=== PATIENT | female | born 1960 | race Caucasian/White ===

== ENCOUNTER 2019-09-01 10:08 | Outpatient (CLI) | payer BC, SELFPAY ==
--- NOTE | 2019-09-01 10:17 | MM_ITS ---
WS: [id number] BILATERAL SCREENING DIGITAL MAMMOGRAM WITH CAD HISTORY: SCREENING COMPARISON: 05/20/2017, 12/13/2015, 06/20/2012 and 07/29/2012 Bilateral CC and MLO views submitted. Computer aided detection analyzed. Breast composition: There are scattered areas of fibroglandular density. No suspicious masses, microc alcifications or architectural distortion. There is a long-term stable nodule in the central LEFT nicole ast. 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 Irina n calcification in the central RIGHT breast. MM/[place] [id number] IMPRESSION: BI-RADS: 2-Benign FOLLOW UP: 1 Year Follow-up
== END 2019-09-01 10:09 | disposition home or self-care (01) ==
LOC: RADSHAW 10:14
PROVIDERS: Family Provider Electrodiagnostic Medicine; PCP Electrodiagnostic Medicine; Visit Provider Electrodiagnostic Medicine
DX: Z12.31 Encounter for screening mammogram for malignant neoplasm of breast (principal)
CPT/HCPCS: 77067

== ENCOUNTER 2020-03-09 14:16 | Outpatient (CLI) | payer BC, SELFPAY ==
--- NOTE | 2020-03-09 14:26 | XR_ITS ---
WS: [id number] EXAM: SACRUM AND COCCYX: 3 VIEWS DATE OF EXAMINATION: 03/09/2020, 1447 hours COMPARISON: Lumbar spine examination from 06/18/2017 HISTORY: Patient is 59 years old with back pain status post fall FINDINGS: Since the prior examination there has been interval transpedicular screw fixation performed at the L5 -S1 level bilaterally as well as an anterior plate and screws and interbody fusion device placed. The re is a slight halo effect around the right L5 transpedicular screw suggesting possible loss of purch ase. No hardware failure otherwise seen. Fairly extensive facet arthropathy changes lower lumbar spin e. Overall bone density is decreased. Minimal arthritis within both SI joints. I'm not convinced of a definite displaced sacral fracture. Presacral space is normal. If there is high clinical suspicion f or fracture that needs further evaluation follow-up CT or MRI would be the imaging modalities of rodriguez samia for evaluation. Calcification of the deep pelvis felt to represent phleboliths. XR/XR sacrum coccyx min 2V [id number] IMPRESSION: No fracture seen. Interval postoperative changes with fusion L5-S1 level. Quest ion loss of purchase of the right L5 transpedicular screw.
== END 2020-03-09 14:17 | disposition home or self-care (01) ==
LOC: RAD 14:20
PROVIDERS: PCP Electrodiagnostic Medicine; Visit Provider Electrodiagnostic Medicine
DX: M54.5 Low back pain (principal); W19.XXXA Unspecified fall, initial encounter; M43.27 Fusion of spine, lumbosacral region
CPT/HCPCS: 72220

== ENCOUNTER 2021-04-26 07:58 | Outpatient (CLI) | payer BC, SELFPAY ==
--- NOTE | 2021-04-26 08:10 | MM_ITS ---
WS: [id number] Bilateral screening digital mammogram, 04/26/2021 Clinical Data: SCREENING Comparison: 09/01/2019, 05/20/2017, 12/13/2015, 01/05/2014, 07/29/2012, 06/20/2012, 07/11/2010, 06/30/2009 , 05/18/2008, 04/03/2007, 05/14/2006. Findings: The breast parenchymal pattern shows fibroglandular tissue No spiculated masses or clustered calcific ations are seen. There are no secondary signs of carcinoma. There is a mole marker on the right breas t. MM/[place] [id number] Impression: 1. Negative bilateral mammogram unchanged. 2. Recommend annual screening mammograms. BIRADS: 1-Negative FOLLOW UP: 1 Year Follow-up The CAD calibration checker was used.
== END 2021-04-26 07:59 | disposition home or self-care (01) ==
LOC: RADSHAW 08:01
PROVIDERS: PCP Electrodiagnostic Medicine; Visit Provider Electrodiagnostic Medicine
DX: Z12.31 Encounter for screening mammogram for malignant neoplasm of breast (principal)
CPT/HCPCS: 77067

== ENCOUNTER 2021-04-26 13:30 | Outpatient (CLI) | payer BC, SELFPAY ==
--- NOTE | 2021-04-26 13:36 | USCV_ITS ---
KimmyManie Age: 60 Gender: F : 1960 Exam Date: 04/26/2021 14:10 Ordering Phys: Johnnie Vazquez DO Technologist: Exam Location: [facility] [place] Indication: swelling LLE PROCEDURES: Venous duplex imaging was performed in only the left lower extremity. The following venous structures were evaluated: common femoral vein, profunda vein, proximal portion of the greater saphenous vein, superficial femoral vein, and the popliteal vein. In addition, the posterior tibial and peroneal trunk were evaluated. FINDINGS: Normal 2-D Doppler and augmentation and compressibility throughout the lower extremity venous structures. Additional imaging through the proximal calf veins also reveals no thrombus. Limited evaluation of the greater saphenous vein is patent with no thrombus. CONCLUSIONS No DVT left lower extremity. Dr. Haleigh Lei DO (Electronically Signed) Final Date: 26 April 2021 16:11 S
== END 2021-04-26 13:31 | disposition home or self-care (01) ==
LOC: RAD 13:33
PROVIDERS: PCP Electrodiagnostic Medicine; Visit Provider Electrodiagnostic Medicine
DX: M79.662 Pain in left lower leg (principal); M25.572 Pain in left ankle and joints of left foot; M79.89 Other specified soft tissue disorders
CPT/HCPCS: 93971

== ENCOUNTER 2022-09-17 07:53 | Outpatient (CLI) | payer BC, SELFPAY ==
--- NOTE | 2022-09-17 08:05 | MM_ITS ---
WS: [id number] Bilateral screening 3D tomosynthesis digital mammogram, 09/17/2022 Clinical Data: SCREEN Comparison: 04/26/2021, 09/01/2019, 05/20/2017, 12/13/2015, 01/05/2014, 07/29/2012, 06/20/2012, 07/11/2010, 06/30/2009, 05/18/2008, 04/03/2007. Findings: The breast parenchymal pattern shows fibroglandular tissue. No spiculated masses are seen. There is a 0.7 cm smooth bordered density in the central portion of the left breast with numerous calcification s. Probably this lesion represents a degenerating fibroadenoma but a breast ultrasound is recommended . The right breast is normal There are no secondary signs of carcinoma. MM/[place] [id number] Impression: 1. 0.7 cm central left breast lesion at the 12:00 position 2. Recommend left breast ultrasound. BIRADS: 0-Incomplete: Need additional imaging evaluation FOLLOW UP: See Report The CAD waterway traffic checker was used.
== END 2022-09-17 07:54 | disposition home or self-care (01) ==
LOC: RAD 07:54
PROVIDERS: PCP Electrodiagnostic Medicine; Visit Provider Electrodiagnostic Medicine
DX: Z12.31 Encounter for screening mammogram for malignant neoplasm of breast (principal)
CPT/HCPCS: 77063; 77067

== ENCOUNTER 2022-10-17 11:44 | Outpatient (CLI) | payer BC, SELFPAY ==
--- NOTE | 2022-10-17 12:05 | US_ITS ---
WS: [id number] ULTRASOUND LEFT BREAST HISTORY: ABNORMAL MAMMO COMPARISON: Prior ultrasound 07/29/2012, mammogram 09/17/2022, 04/26/2021, 09/01/2019 TECHNIQUE: 2-D and Doppler. Hypoechoic mass with a few central calcifications is identified at 12:00, 1 cm from the nipple. This corresponds to the mammographic abnormality. This mass measures 8 x 4 x 9 mm. This mass appears sligh tly different in configuration with increased calcification but has been present since at least 2019. Most consistent with a fibroadenoma. US/US breast LT limited* [id number] IMPRESSION: BI-RADS: 2-Benign FOLLOW-UP: 1 Year Follow-up
== END 2022-10-17 11:45 | disposition home or self-care (01) ==
PROVIDERS: PCP Electrodiagnostic Medicine; Visit Provider Electrodiagnostic Medicine
DX: R92.8 Other abnormal and inconclusive findings on diagnostic imaging of breast (principal)
CPT/HCPCS: 76642

== ENCOUNTER 2023-12-19 08:43 | Outpatient (CLI) | payer BC, SELFPAY ==
--- NOTE | 2023-12-19 08:47 | MM_ITS ---
WS: [id number] VIEWS: MLO and CC views both breasts. 3D digital tomosynthesis is also included in this exam. Comparison made with prior exam of 05/18/2008, 06/30/2009, 07/11/2010, 07/29/2012, 01/05/2014, 12/13/2015 , 05/20/2017, 09/01/2019, 04/26/2021, 09/17/2022.. Findings: There was no sign of mass, architectural distortion or suspicious calcification in either breast. The re are scattered areas of fibroglandular density MM/[place] [id number] Impression: BI-RADS: 2-Benign finding. FOLLOW-UP: 1 Year Follow-up This mammogram was also analyzed by the Computer Aided Detection System R2 Imag e Medicare Nurse.
== END 2023-12-19 08:44 | disposition home or self-care (01) ==
LOC: RAD 08:43
PROVIDERS: PCP Electrodiagnostic Medicine; Visit Provider Electrodiagnostic Medicine
DX: Z12.31 Encounter for screening mammogram for malignant neoplasm of breast (principal); R92.323 Mammographic fibroglandular density, bilateral breasts
CPT/HCPCS: 77063; 77067

== ENCOUNTER 2025-02-01 08:12 | Outpatient (CLI) | payer MEDICARE, OTHER, SELFPAY ==
--- NOTE | 2025-02-01 08:17 | MM_ITS ---
WS: [id number] BILATERAL SCREENING DIGITAL TOMOSYNTHESIS MAMMOGRAM WITH CAD HISTORY: SCREENING COMPARISON: 12/19/2023, 09/17/2022 and 04/26/2021, ultrasound 10/17/2022 Bilateral CC and MLO views with tomosynthesis and synthetic mammography submitted. Computer aided detection analyzed. Breast composition: There are scattered areas of fibroglandular density. No suspicious masses, microcalcifications or architectural distortion. Reidentified is a mass measuring 6 x 7 x 8 mm with coarse central calcification most consistent with a fibroadenoma. Calcific deposits are increasing but course. No suspicious areas of pleomorphic calcifications. No distortion. MM/MM scr [place] tomosynthesis [id number] IMPRESSION: BI-RADS: 2 - Benign. FOLLOW UP: 1 Year Follow-up
== END 2025-02-01 08:13 | disposition home or self-care (01) ==
LOC: RAD 08:14
PROVIDERS: PCP Electrodiagnostic Medicine; Visit Provider Electrodiagnostic Medicine
DX: Z12.31 Encounter for screening mammogram for malignant neoplasm of breast (principal); R92.323 Mammographic fibroglandular density, bilateral breasts; R92.1 Mammographic calcification found on diagnostic imaging of breast
CPT/HCPCS: 77063; 77067

== ENCOUNTER 2025-03-16 09:47 | Outpatient (CLI) | payer MEDICARE, OTHER, SELFPAY ==
--- NOTE | 2025-03-16 09:55 | CT_ITS ---
WS: [id number] CT ABDOMEN AND PELVIS WITH AND WITHOUT CONTRAST HISTORY: RECURRENT VENTRAL HERNIA TECHNIQUE: Unenhanced 5 mm axial imaging first performed through the abdomen. Post contrast imaging through the abdomen and pelvis. Oral contrast has not been provided. Sagittal and coronal reformats are submitted. All CT scans at [facility] use at least one of these dose optimization techniques: automated exposure control; mA and/or kV adjustment per patient size (includes targeted exams where dose is matched to clinical indication); or iterative reconstruction. CONTRAST: Omnipaque 350; 95 mL IV. DLP: 605.04 mGy.cm COMPARISON: None available. Lung bases are clear. Heart is normal size. Very small hiatal hernia. Normal liver, spleen and gallbladder. Normal pancreas. There is mild pancreatic atrophy as expected for age. Mild bilateral adrenal gland thickening. No renal obstruction or calcifications. Extensive atherosclerotic plaque within the abdominal aorta. Mild stenosis and narrowing of the lumen near the bifurcation. Calcified plaque extends into the iliac arteries. Component of stenosis likely involving the LEFT common iliac artery. No GI tract obstruction. No colitis identified. No appendicitis. Moderate diverticular disease in the sigmoid colon without acute diverticulitis. Marker is placed along the RIGHT lateral abdominal wall at the site of the palpable abnormality. There is no underlying mass identified. Normal appearance of the abdominal wall musculature. There is no inflammation. Very small fat- containing umbilical hernia. No ascites or adenopathy. Prior hysterectomy. Urinary bladder is not distended. Prior anterior lumbar fusion at L5-S1 with interbody spacer. CT/CT abdomen pelvis wo/w [id number] IMPRESSION: 1. No mass in the RIGHT lateral abdominal wall associated with the palpable ab normality. Normal soft tissues. 2. No renal obstruction. 3. Sigmoid diverticulosis without acute diverticulitis. 4. No ascites or adenopathy. 5. Heavy calcified plaque in the abdominal aorta and common iliac arteries. St enosis in the distal aorta. High-grade stenosis suspected in the LEFT common il iac artery. 6. Prior hysterectomy.
[2025-03-16] MEDS: iohexol 350 mg/mL 500 mL Btl (per mL) IV (10:18)
== END 2025-03-16 09:48 | disposition home or self-care (01) ==
LOC: RAD 09:52
PROVIDERS: PCP Electrodiagnostic Medicine; Visit Provider Electrodiagnostic Medicine
DX: K43.2 Incisional hernia without obstruction or gangrene (principal); K57.30 Diverticulosis of large intestine without perforation or abscess without bleeding; I70.0 Atherosclerosis of aorta; I35.0 Nonrheumatic aortic (valve) stenosis; Z90.710 Acquired absence of both cervix and uterus
CPT/HCPCS: 74178

== ENCOUNTER 2025-03-30 09:11 | Outpatient (CLI) | payer MEDICARE, OTHER, SELFPAY ==
--- NOTE | 2025-03-30 09:22 | CTR_ITS ---
PROCEDURE INFORMATION: Exam: CTA Abdominal Aorta and Bilateral Lower Extremities (Run-off) With Contrast Exam date and time: 03/30/2025 9:46 AM Age: 64 years old Clinical indication: Abnormal findings; Abnormal diagnostic imaging exam; Abnormality: Extensive atherosclerotic plaque within the abdominal aorta. Mild stenosis and narrowing of the. Lumen near the bifurcation. Calcified plaque extends into the iliac arteries. Component of stenosis. Likely involving the left common iliac artery. Prior surgery; Surgery date: 6+ months; Surgery type: Hyst, back; Follow up to CT abd/pel abnormal plaque in aorta; Additional info: Atheroclerosis of abdominal aorta TECHNIQUE: Imaging protocol: Computed tomographic angiography of the of the abdominal aorta, pelvis and bilateral lower extremities with contrast. 3D rendering (Not supervised by radiologist): MIP and/or 3D reconstructed images were created by the technologist. Radiation optimization: All CT scans at this facility use at least one of these dose optimization techniques: automated exposure control; mA and/or kV adjustment per patient size (includes targeted exams where dose is matched to clinical indication); or iterative reconstruction. Contrast material: [id number]; Contrast volume: 125 ml; Contrast route: INTRAVENOUS (IV); COMPARISON: CT abdomen pelvis wo/w [id number] 03/16/2025 10:14 AM RADIATION DOSE METRICS: Total DLP (mGy-cm): 1468.8 FINDINGS: Aorta: Calcific plaques are seen within the thoracic and abdominal aorta and iliac arteries bilaterally. Prominent irregular calcific and soft plaque formation is seen within the distal abdominal aorta immediately proximal to the bifurcation that causes up to 60% stenosis. Celiac trunk and mesenteric arteries: No occlusion or significant stenosis. Renal arteries: No occlusion or significant stenosis. Right iliac arteries: No occlusion or significant stenosis. Right femoral/popliteal arteries: No occlusion or significant stenosis. Right infrapopliteal arteries: No occlusion or significant stenosis. Left iliac arteries: No occlusion or significant stenosis. Left femoral/popliteal arteries: No occlusion or significant stenosis. Left infrapopliteal arteries: No occlusion or significant stenosis. Liver: There is hypoattenuation of the hepatic parenchyma compatible with fatty infiltration. Patchy areas of fatty sparing are seen in the left hepatic lobe. Gallbladder and biliary ducts: Unremarkable. No calcified stones. No ductal dilation. Pancreas: Unremarkable. No mass. No ductal dilation. Spleen: Normal. No splenomegaly. Adrenal glands: Normal. No mass. Kidneys and ureters: Normal. No mass. Stomach and bowel: Unremarkable. No obstruction. No mucosal thickening. Appendix: No evidence of appendicitis. Urinary bladder: Unremarkable. No mass. Reproductive: Unremarkable as visualized. Intraperitoneal space: Unremarkable. No free air. No significant fluid collection. Lymph nodes: No lymphadenopathy. Bones/joints: Views the posterior rods are seen L5-S1. Soft tissues: Unremarkable. CT/CT angio abd aorta runof [id number] IMPRESSION: Diffuse calcific plaques are seen within the thoracic and abdominal aorta and iliac arteries. There is a irregular mixed plaque within the distal abdominal aorta proximal to the bifurcation the causes approximately 60% stenosis.
[2025-03-30] MEDS: iohexol 350 mg/mL 500 mL Btl (per mL) IV (10:12)
== END 2025-03-30 09:12 | disposition home or self-care (01) ==
LOC: RAD 09:12
PROVIDERS: PCP Electrodiagnostic Medicine; Visit Provider Electrodiagnostic Medicine
DX: I70.0 Atherosclerosis of aorta (principal)
CPT/HCPCS: 75635